=== PATIENT | female | born 1980 | race Caucasian/White ===

== ENCOUNTER 2016-08-12 00:02 | Emergency (ER) | payer OTHER, MEDICAID ==
[~2016-08-12] VITALS: Ht 167.6 cm; Wt 120.5 kg
[2016-08-12 00:05] VITALS: Ht 167.6 cm; Wt 120.5 kg
[2016-08-12] MEDS ORDERED: IBUP-1542 PO (03:23)
[2016-08-12] MEDS ORDERED: PROM5SYR2 PO (03:23)
[2016-08-12] MEDS ORDERED: ACETAMINOPHEN 325 MG TAB PO ONE (04:00)
[2016-08-12] MEDS ORDERED: IBUPROFEN 600 MG TAB PO ONE (04:00)
[2016-08-12 04:05] VITALS: BP 162/83; PULSE 75; RESP 20; TEMP 97.4
--- NOTE | 2016-08-12 04:23 | ERD ---
ER Documentation Chief Complaint Date/Time DATE: 08/12/16 TIME: 04:21 Chief Complaint cough x 4 days HPI This is a 35-year-old female presenting to the emergency department complaining of cough, congestion, sore throat and body aches for the past 4 days. Patient denies any current fevers. Denies any diarrhea or vomiting. Patient states that she has tried [id number] products including TheraFlu. She states she took TheraFlu at 7 PM without any relief. Denies any chest pain or shortness of breath ROS All systems reviewed and are negative except as per history of present illness. Medications Home Meds Active Scripts Promethazine HCl/Codeine (Prometh-Codein 6.25-10 mg/5 ml) 5 Ml Syrup, 5 ML PO Q4 Y for COUGH, #90 Prov:EDMUND SANABRIA PA-C 08/12/16 Ibuprofen* (Ibuprofen*) 600 Mg Tablet, 600 MG PO Q6H Y for PAIN, #30 TAB Prov:EDMUND SANABRIA PA-C 08/12/16 Allergies Allergies: Coded Allergies: No Known Allergy (Unverified , 08/12/16) PMhx/Soc Hx Alcohol Use: No Hx Substance Use: No Hx Tobacco Use: No Smoking Status: Never smoker Physical Exam Vitals Vital Signs Date Time Temp Pulse Resp B/P Pulse Ox O2 Delivery O2 Flow Rate FiO2 08/12/16 04:05 97.4 75 20 162/83 97 Room Air 08/12/16 00:05 98.4 79 20 169/98 99 Physical Exam GENERAL: well-developed/well-nourished, in no apparent distress, non-toxic appearing HEAD: NC/AT, no swelling noted in frontal or maxillary areas EARS: bilateral tympanic membrane is intact without erythema or effusion NARES: nares congested THROAT: oropharynx nonerythematous without exudates, no tonsil enlargement EYES: Conjunctiva normal NECK: Supple, no lymphadenopathy PULM: CTA bilaterally, no rales, rhonchi, or wheezing heard CV: Normal S1S2, RRR, good capillary refill GI: Soft, non-distended, normal bowel sounds, non-tender BACK: No midline tenderness, no masses EXT No clubbing, cyanosis, or edema NEURO: Alert and Orientated SKIN: Intact, normal turgor PSYCH: Normal mood and mentation Results 24 hrs Current Medications Medications (Trade) Dose Ordered Sig/Jonathon Route PRN Reason Start Time Stop Time Status Last Admin Dose Admin Ibuprofen (Motrin) 600 mg ONCE ONCE PO 08/12/16 04:00 08/12/16 04:01 DC 08/12/16 03:53 Acetaminophen (Tylenol Tab) 650 mg ONCE ONCE PO 08/12/16 04:00 08/12/16 04:01 DC 08/12/16 03:53 Procedures/MDM MDM: 35-year-old female presents to the ER with symptoms that are most commonly due to a viral upper respiratory infection. My clinical suspicion is low suspicion for pneumonia, strep pharyngitis, or pulmonary emergencies due to physical examination. Patient's lungs were clear on examination. Patient was given ibuprofen and Tylenol in the ED. She is hemodynamically stable for discharge. Prescription for ibuprofen and promethazine with codeine was given to patient, discussed to return to the ED if not improving as expected or follow -up with a primary care physician. Patient understood and agreed with this plan. Departure Diagnosis: Primary Impression: URI (upper respiratory infection) Condition: Stable Patient Instructions: Preventing Common Respiratory Infections, Uri, Viral, No Abx (Child) Referrals: COMMUNITY CLINICS YOU HAVE RECEIVED A MEDICAL SCREENING EXAM AND THE RESULTS INDICATE THAT YOU DO NOT HAVE A CONDITION THAT REQUIRES URGENT TREATMENT IN THE EMERGENCY DEPARTMENT. FURTHER EVALUATION AND TREATMENT OF YOUR CONDITION CAN WAIT UNTIL YOU ARE SEEN IN YOUR DOCTORS OFFICE WITHIN THE NEXT 1-2 DAYS. IT IS YOUR RESPONSIBILITY TO MAKE AN APPOINTMENT FOR FOLOW-UP CARE. IF YOU HAVE A PRIMARY DOCTOR --you should call your primary doctor and schedule an appointment IF YOU DO NOT HAVE A PRIMARY DOCTOR YOU CAN CALL OUR PHYSICIAN REFERRAL HOTLINE AT IF YOU CAN NOT AFFORD TO SEE A PHYSICIAN YOU CAN CHOSE FROM THE FOLLOWING [facility] CL[facility]ICS [facility] [id number] [facility] [address] [facility] [address] [facility] [address] [facility] [address] [facility] [facility]. [facility]. [address] [facility] ([place]) Eladio se quezada hecho un examen mdico de control que le indica que no est en yonis condicin que requiera tratamiento urgente en el Departamento de Emergencia. Un estudio ms profundo y el tratamiento de peña condicin pueden esperar sin ningn riesgo hasta que usted sea atendida/o en el consultorio de peña mdico o yonis cl wendi. Es responsabilidad suya arreglar yonis kandis para el seguimiento del terri. MANEJO DE CONDICIONES NO URGENTES EN EL FUTURO 1) Si usted tiene un mdico de atencin primaria: Eladio debera llamar a peña mdico de atencin primaria antes de venir al departamento de emergencia. Despus de las horas de consultorio, peña doctor o peña asociado/a est disponible por telfono. El mdico o enfermero de shruthi en el servicio telefnico puede asesorarle por keaton medio para atender el problema, o terri contrario se puede programar yonis kandis. 2) Si usted no tiene un mdico de atencin primaria: Llame al mdico o clnica de referencia que aparece abajo aries las horas de consultorio para hacer yonis kandis para que le vean. CLINICAS: [facility] [phone] [facility] [phone] [place] [phone] [facility]. [place] [phone] [facility]. [place] [phone] [facility]. [phone] [address] Additional Instructions: FOLLOW UP WITH YOUR PRIMARY CARE PHYSICIAN TOMORROW. Return to this facility if you are not improving as expected. Take all medicines as directed. Return to this facility if you are not improving as expected. You have been given a medicine which may cause drowsiness.DO NOT DRIVE OR OPERATE DANGEROUS MACHINERY while taking this medicine! EDMUND SANABRIA PA-C Aug 12, 2016 04:23
== END 2016-08-12 04:05 | disposition home or self-care (01) ==
LOC: FTE 00:02
DX: J06.9 Acute upper respiratory infection, unspecified (principal)
CPT/HCPCS: 99283

== ENCOUNTER 2017-07-31 04:36 | Emergency (ER) | END 2017-07-31 07:10 | disposition home or self-care (01) ==

== ENCOUNTER 2018-09-18 23:56 | Emergency (ER) | payer OTHER, MEDICAID ==
[~2018-09-18] VITALS: Ht 167.6 cm; Wt 130.0 kg
[~2018-09-18 23:56] MED LIST: AZIT250T PO; BENZ-6 PO; D-ME473S2 PO; IBUP-1542 PO; PROM5SYR2 PO
[2018-09-19 00:14] VITALS: Ht 167.6 cm; Wt 130.0 kg
--- NOTE | 2018-09-19 05:43 | ERD ---
ER Documentation Chief Complaint Chief Complaint cough x 3 days. cp when coughing. no sob HPI This is a 37-year-old female presents emergency department with complaints of productive cough for about 4 days. Chest discomfort during coughing. LMP: Denies headache, head injury, loss of consciousness, dizziness, neck pain, neck stiffness, throat pain, difficulty swallowing, difficulty breathing lying flat, shoulder pain, chest pain, back pain, abdominal pain, nausea, vomiting, constipation, diarrhea, urinary symptoms, or possibility being , loss of bowel and bladder control, trauma, injury, falls, difficulty walking due to pain, numbness or tingling sensation, calf pain, recent travel, recent major surgery in the last 3 weeks, calf pain, recent long travel, recent exposure to any illness, recent antibiotic use in the last 3 months, fever, chills, seizures. Past medical history: Hypertension. Stated that she is off antihypertensive medication for about a month. Stated that she will follow-up with her doctor on discharge. Surgical history: Social: Denies smoking, use of alcoholic beverages, use of illegal drugs. ROS All systems reviewed and are negative except as per history of present illness. Medications Home Meds Active Scripts Prednisone* (Prednisone*) 20 Mg Tab, 40 MG PO DAILY for 4 Days, TAB Prov:LIGIAGABRIELLEXOCHILT 09/19/18 Ibuprofen* (Motrin*) 800 Mg Tab, 800 MG PO Q6H PRN for PAIN AND OR ELEVATED TEMP, #30 TAB Prov:XOCHILT PARRA 09/19/18 Benzonatate* (Tessalon Perle*) 100 Mg Capsule, 100 MG PO Q8H PRN for COUGH, #15 CAP Prov:PASILAJOANNAANNABELMATTHEW Tom 09/19/18 Amoxicillin/Potassium Clav (Amox-Clav 875-125 mg Tablet) 875-125 mg Tab, 1 TAB PO BID for 10 Days, #20 TAB Prov:LIGIATREASUREXOCHILT MARSHALL 09/19/18 Azithromycin* (Zithromax*) 250 Mg Tablet, 250 MG PO .FATUMACK DIRECTED, #6 TAB TAKE 500 MG (2 TABS) THE FIRST DAY THEN 250 MG (1 TAB) DAYS 2-5 Prov:JESUSITA MEEKS PA-C 07/31/17 Benzonatate* (Tessalon Perle*) 100 Mg Capsule, 100 MG PO Q8H PRN for COUGH, #15 CAP Prov:JEANNAJESUSITA RUSSO 07/31/17 Dextromethorphan Hb-Promethazine Hcl* (Promethazine DM* Syrup) 473 Ml Syrup, 5 ML PO Q6 PRN for COUGH, #1 BOTTLE Prov:SHAWN MEEKSGISELE RUSSO 07/31/17 Promethazine HCl/Codeine (Prometh-Codein 6.25-10 mg/5 ml) 5 Ml Syrup, 5 ML PO Q4 PRN for COUGH, #90 Prov:EDMUND SANABRIA PA-C 08/12/16 Ibuprofen* (Ibuprofen*) 600 Mg Tablet, 600 MG PO Q6H PRN for PAIN, #30 TAB Prov:EDMUND SANABRIA PA-C 08/12/16 Allergies Allergies: Coded Allergies: No Known Allergy (Unverified , 07/31/17) PMhx/Soc History of Surgery: Yes (,gastric bypass,tummy tuck) Anesthesia Reaction: No Hx Neurological Disorder: No Hx Respiratory Disorders: No Hx Cardiac Disorders: No Hx Psychiatric Problems: No Hx Alcohol Use: No Hx Substance Use: No Hx Tobacco Use: No Smoking Status: Never smoker Physical Exam Vitals Vital Signs Date Temp Pulse Resp B/P (MAP) Pulse Ox O2 O2 Flow FiO2 Time Delivery Rate 09/19/18 98.3 60 20 141/86 97 Room Air 06:10 (104) 09/19/18 98.8 60 18 181/100 98 00:14 (127) Physical Exam Const: No acute distress Head: Atraumatic Eyes: Normal Conjunctiva ENT: Normal External Ears, Nose and Mouth. Bilateral ears: TMs are erythematous. No bleeding. No discharge with no hearing loss. Nose: There is frontal and maxillary sinus tenderness to palpation. Throat: Uvula is in m idline and nondisplaced. Tonsils are +1 bilaterally with redness but without exudates. Tolerating secretions. Patent airway. No tripoding. Speaks full and clear sentences. Neck: Full range of motion. No meningismus. No nuchal rigidity. No signs of meningeal irritation. Resp: Clear to auscultation bilaterally Cardio: Regular rate and rhythm, no murmurs Abd: Soft, non tender, non distended. Normal bowel sounds Skin: No petechiae or rashes Back: No midline or flank tenderness Ext: No cyanosis, or edema Neur: Awake and alert. No neurological deficits. Psych: Normal Mood and Affect Procedures/MDM Offered diagnostic tests but patient strongly refused. Stated that she prefers to be prescribed. Medication and that will just follow-up with her primary care physician. Diagnostic tests: Clinical exam: Sinusitis with bronchitis. Treatment: Not applicable. Re-evaluation: Not applicable. Differential diagnosis I have low suspicion for sepsis, severe serious bacterial infection, meningitis, mastoiditis, peritonsillar abscess, bronchospasm, severe dehydration. Final diagnosis: Bronchitis. Sinusitis. Prescription: Augmentin. Motrin. Tessalon Perles. Follow-up with PCP in the next 24-48 hours. Come back here in the emergency department for any new symptoms or any worsening symptoms. All questions and concerns were answered. Patient and family members verbalized understanding and agreed with plan of care. Hemodynamically stable on discharge. Departure Diagnosis: Primary Impression: Sinusitis Additional Impression: Bronchitis Condition: Stable Additional Instructions: Follow-up with PCP in the next 24-48 hours. Come back here in the emergency department for any new symptoms or any worsening symptoms. XOCHILT PARRA Sep 19, 2018 05:43
[2018-09-19] MEDS ORDERED: AMOX1TAB10 PO (05:44)
[2018-09-19] MEDS ORDERED: BENZ-6 PO (05:46)
[2018-09-19] MEDS ORDERED: PRED20TA PO (05:47)
[2018-09-19] MEDS ORDERED: IBUP800T48 PO (05:47)
[2018-09-19 06:10] VITALS: BP 141/86; PULSE 60; RESP 20
== END 2018-09-19 23:56 | disposition home or self-care (01) ==
LOC: FTE 09-19 23:56 → E/R 09-19 23:56
DX: J40 Bronchitis, not specified as acute or chronic (principal); J32.9 Chronic sinusitis, unspecified
CPT/HCPCS: 99283